=== PATIENT | male | born 1995 | race Asian ===

== ENCOUNTER 2018-11-11 17:03 | Emergency (ER) | payer OTHER ==
--- NOTE | 2018-11-11 17:17 | ED ---
Psychiatric Complaint - HPI Summary HPI Summary: A 22 y/o male presents to [facility] with a chief complaint of being brought in by [employer] ambulance and police on a 9.45 today. He denies any current SI but states that he is depressed. Pt denies any fever, chills, erythema of eyes, sore throat , CP, SOB, cough, abdominal pain, N/V, dysuria, hematuria, myalgia, edema, rash , or dizziness. He reports that he tried to OD twice more than one year ago on Effexor and another drug which he does not remember. He reports marijuana use but denies EtOH use. He claims that he has a Hx of being admitted for psychiatric issues. - History Of Current Complaint Hx Obtained From: Patient, EMS Onset/Duration: Sudden Onset, Lasting Hours, Still Present Timing: Constant Severity Initially: Mild Severity Currently: Mild Character: Depressed Aggravating Factor(s): Nothing Alleviating Factor(s): Nothing Associated Signs And Symptoms: Positive: Negative Related History: Positive For: Prior Psychiatric Issues, Admissions Related To Substance Abuse Has Suicidal: Denies: Thoughts Has Homicidal: Denies: Thoughts - Allergies/Home Medications Allergies/Adverse Reactions: Allergies Allergy/AdvReac Type Severity Reaction Status Date / Time No Known Allergies Allergy Verified 11/11/18 17:08 Home Medications: Home Medications DULoxetine DR CAP* [Cymbalta CAP*] 30 mg PO DAILY 11/11/18 [History Confirmed ] buPROPion SR TAB* [Wellbutrin SR TAB*] 300 mg PO DAILY 11/11/18 [History Confirmed 11/11/18] PMH/Surg Hx/FS Hx/Imm Hx Cardiovascular History: Reports: Hx Hypertension Psychiatric History: Reports: Hx Anxiety, Hx Attention Deficit Hyperactivity Disorder, Hx Depression Denies: Hx Eating Disorder, Hx Suicide Attempt, Hx of Violent Episodes Against Others - Surgical History Surgery Procedure, Year, and Place: None - Family History Known Family History: Positive: Hypertension, Diabetes - Social History Alcohol Use: Occasionally Hx Substance Use: Yes Substance Use Type: Reports: Marijuana Smoking Status (MU): Former Smoker Review of Systems Negative: Fever, Chills Negative: Erythema Negative: Sore Throat Negative: Chest Pain Negative: Shortness Of Breath, Cough Negative: Abdominal Pain, Vomiting, Nausea Negative: dysuria, hematuria Negative: Myalgia, Edema Negative: Rash Neurological: Negative - dizziness Positive: Depressed, Other - negative: SI, HI Physical Exam - Summary Physical Exam Summary: Constitutional: Well-developed, Well-nourished, Alert. (-) Distressed Skin: Warm, Dry HENT: Normocephalic; Atraumatic Eyes: Conjunctiva normal Neck: Musculoskeletal ROM normal neck. (-) JVD, (-) Stridor, (-) Tracheal deviation Cardio: Rhythm regular, rate normal, Heart sounds normal; Intact distal pulses; The pedal pulses are 2+ and symmetric. Radial pulses are 2+ and symmetric. (-) Murmur Pulmonary/Chest wall: Effort normal. (-) Respiratory distress, (-) Wheezes, (-) Rales Abd: Soft, (-) tenderness, (-) Distension, (-) Guarding, (-) Rebound Musculoskeletal: (-) Edema Lymph: (-) Cervical adenopathy Neuro: Alert, Oriented x3 Psych: Mood and affect Normal Triage Information Reviewed: Yes Vital Signs Reviewed: Yes Diagnostics - Laboratory Result Diagrams: 11/11/18 17:34 11/11/18 17:34 Lab Statement: Any lab studies that have been ordered have been reviewed, and results considered in the medical decision making process. Re-Evaluation - Re-Evaluation First Eval Re-Evaluation Time: 17:07 Change: Unchanged Comment: Pt cleared for MHE. Course/Dx - Course Course Of Treatment: A 22 y/o male presents to [facility] with a chief complaint of being brought in by [facility] ambulance and police on a 9.45 today. He denies any current SI but states that he is depressed. Pt denies any fever, chills, erythema of eyes, sore throat, CP, SOB, cough, abdominal pain, N/V, dysuria, hematuria, myalgia, edema, rash, or dizziness. He reports that he tried to OD twice more than one year ago on Effexor and another drug which he does not remember. He reports marijuana use but denies EtOH use. He claims that he has a Hx of being admitted for psychiatric issues. Bloodwork, chemistry, urines and toxicology obtained. Pt has been cleared for MHE. This patient will be signed out to Dr. Jackson upon shift change at 22:00 11/11/18 pending MHE. - Differential Dx/Clinical Impression Provider Diagnosis: Major depression Discharge - Sign-Out/Discharge Documenting (check all that apply): Sign-Out Patient Signing out patient TO: Gregorio Jackson - pending MHE Patient Received Moderate/Deep Sedation with Procedure: No - Discharge Plan Condition: Stable Referrals: No Primary Care Phys,NOPCP [Primary Care Provider] - - Attestation Statements Document Initiated by Scribe: Yes Documenting Scribe: Jan Sears Provider For Whom Scribe is Documenting (Include Credential): Carlos Velez MD Scribe Attestation: IJan, scribed for Carlos Velez MD on 11/11/18 at 2136. Status of Scribe Document: Ready
[2018-11-11 17:47] LABS: Urine Appearance Cloudy; Urine Bilirubin Negative (Negative); Urine Blood Negative (Negative); Urine Color Yellow; Urine Glucose Negative (Negative); Urine Ketones Negative (Negative); Urine Nitrite Negative (Negative); Urine Protein Negative (Negative); Urine Specific Gravity 1.029 (1.010-1.030); Urine Urobilinogen Negative (Negative)
[2018-11-11 17:52] LABS: ABS Eosinophils 0.1 10^3/ul (0-0.6); ABS Lymphocytes 2.3 10^3/ul (1.0-4.8); ABS Monocytes 0.6 10^3/ul (0-0.8); ABS Neutrophils 5.8 10^3/ul (1.5-7.7); Eosinophil % 1.1 %; Hematocrit 49 % (42-52); Hemoglobin 16.7 g/dL (14.0-18.0); Lymphocyte % 26.2 %; Mean Corpuscular HGB Conc 34 g/dL (31-36); Mean Corpuscular Hemoglobin 28 pg (27-31); Mean Corpuscular Volume 83 fL (80-94); Mean Platelet Volume 8.1 fL (7.4-10.4); Nucleated Red Blood Cells % 0.1; Platelet Count 291 10^3/uL (150-450); Red Blood Count 5.96 10^6 /uL (4.18-5.48); Red Cell Distribution Width 14 % (10.5-15); White Blood Count 8.8 10^3/uL (3.5-10.8)
[2018-11-11 18:07] LABS: ALT 17 U/L (7-52); AST 16 U/L (13-39); Albumin 4.8 g/dL (3.2-5.2); Albumin/Globulin Ratio 1.7 (1-3); Alkaline Phosphatase 62 U/L (34-104); Anion Gap 5 mmol/L (2-11); BUN/Creatinine Ratio 10.8 (8-20); Blood Urea Nitrogen 12 mg/dL (6-24); CO2 Carbon Dioxide 29 mmol/L (22-32); Calcium 10.3 mg/dL (8.6-10.3); Chloride 106 mmol/L (101-111); EGFR African American 99.3 (>60); EGFR Non-African American 82.1 (>60); Globulin 2.8 g/dL (2-4); Glucose 111 mg/dL (70-100); Potassium 4.6 mmol/L (3.5-5.0); Sodium 140 mmol/L (135-145); Total Protein 7.6 g/dL (6.4-8.9)
[2018-11-11 18:12] LABS: Urine Benzodiazepine Screen None Detected (None Detect); Urine Opiates Screen None Detected (None Detect)
[2018-11-11 18:19] LABS: Alcohol < 10 mg/dL (<10); Salicylate < 2.50 mg/dL (<30)
[2018-11-11 18:31] LABS: TSH (Thyroid Stimulating Horm) 1.56 mcIU/mL (0.34-5.60)
[2018-11-11 18:35] LABS: Acetaminophen < 15 mcg/mL
--- NOTE | 2018-11-12 05:38 | ED ---
Progress - Progress Note Progress Note: Patient was signed out from Dr. Velez at end of shift, pending MHE. - Consult/PCP Time Called: 07:45 Re-Evaluation - Re-Evaluation First Eval Re-Evaluation Time: 17:07 Change: Unchanged Comment: Pt cleared for MHE. Course/Dx - Course Course Of Treatment: A 22 y/o male presents to [facility] with a chief complaint of being brought in by [facility] ambulance and police on a 9.45 today. He denies any current SI but states that he is depressed. Pt denies any fever, chills, erythema of eyes, sore throat, CP, SOB, cough, abdominal pain, N/V, dysuria, hematuria, myalgia, edema, rash, or dizziness. He reports that he tried to OD twice more than one year ago on Effexor and another drug which he does not remember. He reports marijuana use but denies EtOH use. He claims that he has a Hx of being admitted for psychiatric issues. Bloodwork, chemistry, urines and toxicology obtained. Pt has been cleared for MHE. This patient will be signed out to Dr. Jackson upon shift change at 22:00 11/11/18 pending MHE. Patient was received from Dr. Velez at end of shift, 2200. Patient will be signed out to Dr. Rose at end of shift, 0700, pending MHE. - Diagnoses Provider Diagnoses: Major depression Discharge - Sign-Out/Discharge Documenting (check all that apply): Sign-Out Patient, Receiving Sign-Out Signing out patient TO: Naz Rose Receiving patient FROM: Carlos Velez Patient Received Moderate/Deep Sedation with Procedure: No - Discharge Plan Condition: Stable Referrals: No Primary Care Phys,NOPCP [Primary Care Provider] - - Attestation Statements Document Initiated by Scribe: Yes Documenting Scribe: Piyush Rubin Provider For Whom Scribe is Documenting (Include Credential): MD Amirah Carranzaibdiana Attestation: Piyush Ayala, amaliaed for Gregorio Jackson MD on 11/12/18 at 0629. Status of Scribe Document: Ready
--- NOTE | 2018-11-12 07:01 | PN ---
ED Flex Patient Progress Note Date of Service: 11/11/18 Subjective: This is a 22 year-old M who is pending admission to [facility] / transfer to another psychiatric facility / discharge to home / or being observed secondary to depression, SI. Pt. examined in room 22 around 0655. He is sleeping comfortably. Objective: Vitals: Most recent vital signs documented below. General NAD Laboratory: Current laboratory results documented below. Assessment: Depression Plan: Pending MHE. Vital Signs Temp Pulse Resp BP Pulse Ox 98.6 F 80 16 125/71 98 11/11/18 23:05 11/11/18 23:05 11/11/18 23:05 11/11/18 23:05 11/11/18 23:05 Lab Results - Entire Visit 11/11/18 11/11/18 11/11/18 17:34 17:34 17:23 WBC 8.8 RBC 5.96 H Hgb 16.7 Hct 49 MCV 83 MCH 28 MCHC 34 RDW 14 Plt Count 291 MPV 8.1 Neut % (Auto) 65.5 Lymph % (Auto) 26.2 [place] % (Auto) 7.0 Eos % (Auto) 1.1 Baso % (Auto) 0.2 Absolute Neuts (auto) 5.8 Absolute Lymphs (auto) 2.3 Absolute Monos (auto) 0.6 Absolute Eos (auto) 0.1 Absolute Basos (auto) 0.0 Absolute Nucleated RBC 0.0 Nucleated RBC % 0.1 Sodium 140 Potassium 4.6 Chloride 106 Carbon Dioxide 29 Anion Gap 5 BUN 12 Creatinine 1.11 Est GFR ( Amer) 99.3 Est GFR (Non-Af Amer) 82.1 BUN/Creatinine Ratio 10.8 Glucose 111 H Calcium 10.3 Total Bilirubin 0.60 AST 16 ALT 17 Alkaline Phosphatase 62 Total Protein 7.6 Albumin 4.8 Globulin 2.8 Albumin/Globulin Ratio 1.7 TSH 1.56 Urine Color Urine Appearance Urine pH Ur Specific [place] Urine Protein Urine Ketones Urine Blood Urine Nitrate Urine Bilirubin Urine Urobilinogen Ur Leukocyte Esterase Urine Glucose Urine Ascorbic Acid Salicylates < 2.50 Urine Opiates Screen None detected Acetaminophen < 15 Ur Barbiturates Screen None detected Ur Phencyclidine Scrn None detected Ur Amphetamines Screen None detected U Benzodiazepines Scrn None detected Urine Cocaine Screen None detected U Cannabinoids Screen None detected Serum Alcohol < 10 11/11/18 17:23 WBC RBC Hgb Hct MCV MCH MCHC RDW Plt Count MPV Neut % (Auto) Lymph % (Auto) [place] % (Auto) Eos % (Auto) Baso % (Auto) Absolute Neuts (auto) Absolute Lymphs (auto) Absolute Monos (auto) Absolute Eos (auto) Absolute Basos (auto) Absolute Nucleated RBC Nucleated RBC % Sodium Potassium Chloride Carbon Dioxide Anion Gap BUN Creatinine Est GFR ( Amer) Est GFR (Non-Af Amer) BUN/Creatinine Ratio Glucose Calcium Total Bilirubin AST ALT Alkaline Phosphatase Total Protein Albumin Globulin Albumin/Globulin Ratio TSH Urine Color Yellow Urine Appearance Cloudy Urine pH 5.0 Ur Specific [place] 1.029 Urine Protein Negative Urine Ketones Negative Urine Blood Negative Urine Nitrate Negative Urine Bilirubin Negative Urine Urobilinogen Negative Ur Leukocyte Esterase Negative Urine Glucose Negative Urine Ascorbic Acid * A Salicylates Urine Opiates Screen Acetaminophen Ur Barbiturates Screen Ur Phencyclidine Scrn Ur Amphetamines Screen U Benzodiazepines Scrn Urine Cocaine Screen U Cannabinoids Screen Serum Alcohol
--- NOTE | 2018-11-12 07:30 | ED ---
Progress - Progress Note Progress Note: Patient was signed out to Dr. Rose from Dr. Jackson at end of shift 0700 11/12/18 , pending MHE. U held the patient overnight because he did not have a safe discharge disposition with family or friends to be with him. U is waiting for his parents to drive up from [place] before potential discharge. Pt denies CP, SOB, Nausea, and Vomiting. The patient has no other medical complaints at this time. Pt is calm and cooperative. DULoxetine DR CAP* [Cymbalta CAP*] 30 mg PO DAILY 11/11/18 [History Confirmed ] buPROPion SR TAB* [Wellbutrin SR TAB*] 300 mg PO DAILY 11/11/18 [History Confirmed 11/11/18] Physical Exam Appearance: Ill-appearing, moderate pain distress, well-nourished Skin: Warm, color reflects adequate perfusion, dry Head: Normal Head/Face inspection, atraumatic Eyes: Conjunctiva clear ENT: Normal inspection Neck: Supple, no nodes, no JVD Respiratory: Lungs clear, normal breath sounds, no respiratory distress Cardio: RRR, No murmur, pulses normal, brisk capillary refill Abdomen: Soft, nontender Bowel sounds: Present Musculoskeletal: Strength Intact/ROM intact, no calf tenderness, no edema. Psychological: Normal Neuro: Alert, muscle tone normal, no focal deficit - Consult/PCP Time Called: 07:45 Re-Evaluation - Re-Evaluation First Eval Re-Evaluation Time: 17:07 Change: Unchanged Comment: Pt cleared for MHE. Course/Dx - Course Course Of Treatment: A 22 y/o male presents to [facility] with a chief complaint of being brought in by [employer] ambulance and police on a 9.45 today. He denies any current SI but states that he is depressed. Pt denies any fever, chills, erythema of eyes, sore throat, CP, SOB, cough, abdominal pain, N/V, dysuria, hematuria, myalgia, edema, rash, or dizziness. He reports that he tried to OD twice more than one year ago on Effexor and another drug which he does not remember. He reports marijuana use but denies EtOH use. He claims that he has a Hx of being admitted for psychiatric issues. Bloodwork, chemistry, urines and toxicology obtained. Pt has been cleared for MHE. This patient will be signed out to Dr. Jackson upon shift change at 22:00 11/11/18 pending MHE. Patient was received from Dr. Velez at end of shift, 2200. Patient will be signed out to Dr. Rose at end of shift, 0700, 11/12/[address] Rose saw pt in [place] on 11/12/18 0730 at change of shift. Pt had eaten breakfast, was calm and cooperative with no medical complains. Pt is awaiting his parents' arrival from [place] for a safe dispostion. Pt is happy about this arrangement. States he is not suicidal at this moment. Pt's usual meds Wellbutrin ER, Buproprion written. 15:29 TIAN Dugan states that pt's mother is here from [place]. Mother agrees with discharge, and she will bring him back to [place]. Dr. Urias agrees with discharge. I also agree with discharge. DX: depression, NOS. - Diagnoses Provider Diagnoses: Depression - Provider Notifications Discussed Care Of Patient With: Jone Urias - may discharge to mother's care Time Discussed With Above Provider: 15:25 Discharge - Sign-Out/Discharge Documenting (check all that apply): Patient Departure - Discharge, per MHE - Discharge Plan Condition: Stable Disposition: HOME Referrals: [facility] [Outside] - If Needed - Attestation Statements Document Initiated by Scribe: Yes Documenting Scribe: Jerry Lynn Provider For Whom Scribe is Documenting (Include Credential): Naz Rose MD Scribe Attestation: Jerry Ayala, scribed for Naz Rose MD on 11/12/18 at 1854.
[2018-11-12] MEDS ORDERED: buPROPion SR TAB.SR* 150 MG PO ONE (12:09)
[2018-11-12] MEDS ORDERED: DULoxetine DR CAP* 30 MG CAP.DR PO ONE (12:10)
[2018-11-12 17:28] VITALS: BP 137/92
== END 2018-11-12 17:25 | disposition home or self-care (01) ==
LOC: ED 17:03
DX: F32.9 Major depressive disorder, single episode, unspecified (principal); I10 Essential (primary) hypertension; F90.9 Attention-deficit hyperactivity disorder, unspecified type; Z91.5 Personal history of self-harm; Z87.891 Personal history of nicotine dependence
CPT/HCPCS: 36415; 80053; 80307; 80320; 80329; 81003; 84443; 85025; 99285; A9270-GY; G0480